=== PATIENT | male | born 1995 | race Caucasian/White ===

== ENCOUNTER 2022-01-01 22:25 | Emergency (ER) | payer OTHER ==
[~2022-01-01] VITALS: Ht 170.2 cm; Wt 72.6 kg
[2022-01-01 22:33] VITALS: BP_SYST 149
[2022-01-01 23:29] LABS: BASOPHILS # (AUTO) 0.2 K/uL (0.0-0.2); BASOPHILS % (AUTO) 2.3 % (0.0-2.0); EOSINOPHILS # (AUTO) 0.2 K/uL (0.0-0.4); EOSINOPHILS % (AUTO) 3.4 % (0.0-4.0); HEMATOCRIT 40.3 % (36-54); HEMOGLOBIN 13.6 g/dL (14.0-18.0); LYMPHOCYTES % (AUTO) 14.3 % (20.5-51.5); MEAN CORPUSCULAR HEMOGLOBIN 30 pg (27-31); MEAN CORPUSCULAR HGB CONC 34 % (32-36); MEAN CORPUSCULAR VOLUME 88 fL (79.0-98.0); MONOCYTES # (AUTO) 0.4 K/uL (0.0-1.0); NEUTROPHILS # (AUTO) 4.9 K/uL (1.8-7.7); PLATELET COUNT (AUTO) 299 K/uL (130-430); RED BLOOD CELL COUNT(AUTO) 4.58 MIL/uL (4.2-6.2); WHITE BLOOD COUNT (AUTO) 6.7 K/uL (4.8-10.8)
[2022-01-01 23:47] LABS: CALCIUM 9.9 mg/dL (8.4-11.0); CREATININE 0.78 mg/dL (0.55-1.30); POTASSIUM 3.4 mmol/L (3.5-5.1)
[2022-01-01 23:53] LABS: ALBUMIN 4.1 g/dL (3.4-4.8); TOTAL BILIRUBIN 0.2 mg/dL (0.0-1.0)
[2022-01-02] MEDS ORDERED: NACL 0.9% 1,000 ML IV ONE (01:00)
[2022-01-02] MEDS ORDERED: NAPR-686 PO (01:29)
[2022-01-02] MEDS ORDERED: POTASSIUM CHLORIDE 20 MEQ/PKT PACKET PO ONE (01:30)
[2022-01-02] MEDS ORDERED: POTASSIUM CHLORIDE 20 MEQ/PKT PACKET GT ONE (01:45)
[2022-01-02 09:06] VITALS: BP_SYST 152
== END 2022-01-02 09:06 | disposition home or self-care (01) ==
LOC: SED 22:25
DX: R07.89 Other chest pain (principal); Z79.899 Other long term (current) drug therapy
CPT/HCPCS: 99285; 71045; 80053; 85025; 85379; 84484; 36415; 93005; 96360; J7030

== ENCOUNTER 2022-01-17 15:02 | Emergency (ER) | payer OTHER ==
[~2022-01-17] VITALS: Ht 170.2 cm; Wt 72.6 kg
[~2022-01-17 15:02] MED LIST: NAPR-686 PO
[2022-01-17 15:03] VITALS: BP_SYST 145
[2022-01-17] MEDS ORDERED: NACL 0.9% 1,000 ML IV ONE (15:15)
[2022-01-17 16:12] LABS: BASOPHILS % (AUTO) 0.5 % (0.0-2.0); EOSINOPHILS # (AUTO) 0.1 K/uL (0.0-0.4); EOSINOPHILS % (AUTO) 1.3 % (0.0-4.0); HEMATOCRIT 42.6 % (36-54); LYMPHOCYTES # (AUTO) 1.7 K/uL (1.0-5.5); LYMPHOCYTES % (AUTO) 27.4 % (20.5-51.5); MEAN CORPUSCULAR VOLUME 88 fL (79.0-98.0); MONOCYTES # (AUTO) 0.5 K/uL (0.0-1.0); MONOCYTES % (AUTO) 7.5 % (1.7-9.3); NEUTROPHILS % (AUTO) 63.3 % (40.0-70.0); PLATELET COUNT (AUTO) 283 K/uL (130-430); RED BLOOD CELL COUNT(AUTO) 4.87 MIL/uL (4.2-6.2); RED CELL DISTRIBUTION WIDTH 12.6 % (9.0-15.0); WHITE BLOOD COUNT (AUTO) 6.3 K/uL (4.8-10.8)
[2022-01-17 16:22] LABS: CALCIUM 9.6 mg/dL (8.4-11.0); CREATININE 0.85 mg/dL (0.55-1.30); POTASSIUM 3.3 mmol/L (3.5-5.1)
[2022-01-17 16:29] LABS: ALBUMIN 4.4 g/dL (3.4-4.8); TOTAL BILIRUBIN 0.5 mg/dL (0.0-1.0)
[2022-01-17] MEDS ORDERED: levETIRAcetam 500 MG TABLET PO ONE (16:45)
--- NOTE | 2022-01-17 16:55 | NUR ---
Placed in room 6 . Placed on monitoring analyst, blood pressure machine and pulse oximeter. To gown for exam. Side rails up. Report given to BERNARDO JOHANSEN.
[2022-01-17] MEDS ORDERED: levETIRAcetam 1,000 MG in NS 90 ML IV ONE (17:15)
[2022-01-17 18:55] VITALS: BP_SYST 175
--- NOTE | 2022-01-17 18:56 | NUR ---
Pt D/C in no acute distress mentation at baseline with no deviation from previous documentation. IV Access D/C. Pt transported to mothers vehicle via wheelchair. Pt mother verbalized understanding of D/C instructions.
== END 2022-01-17 18:57 | disposition home or self-care (01) ==
LOC: SED 15:02
DX: R56.9 Unspecified convulsions (principal); Z79.899 Other long term (current) drug therapy
CPT/HCPCS: 99285; 96365; 70450; 71045; 96361; 80053; 85025; 36415; 93005; 76376; J1953; J7030